=== PATIENT | male | born 1965 | race Asian ===

== ENCOUNTER → 2016-10-25 | Outpatient (CLI) | payer OTHER, BC ==
[~2016-10-25] MED LIST: ALBU18002 INH; HYDR-5688 PO; OXYC-57 PO; RANI300T2 PO
[2016-10-25 13:30] LABS: BASO % 0.3 %; BASO ABS # 0.02 K/uL (0-0.2); COMPLETE YES; EOS % 4.4 %; HEMATOCRIT 46.5 % (42-52); IG% 0.6 %; LYMPH % 26.3 %; MEAN CELL VOLUME 90.5 fL (80-100); MEAN CORPUSCULAR HGB CONC 33.1 g/dl (32-36); MEAN PLATELET VOLUME 9.8 fL (7.4-10.4); MONO % 13.7 %; NEUT % 54.7 %; PLATELET COUNT 389 K/uL (130-400); RED BLOOD COUNT 5.14 M/uL (4.7-6.1); WHITE BLOOD COUNT 7.22 K/uL (4.8-10.8)
[2016-10-25 13:50] LABS: BLOOD UREA NITROGEN 14 mg/dl (7-18); BUN/CREATININE RATIO 18.9 (10-20); CALCIUM 8.9 mg/dl (8.5-10.1); CARBON DIOXIDE 30 mmol/L (21-32); CHLORIDE 106 mmol/L (98-107); CREATININE 0.73 mg/dl (0.60-1.40); GLUCOSE 83 mg/dl (70-99); POTASSIUM 4.1 mmol/L (3.5-5.1); SODIUM 142 mmol/L (136-145)
== END | disposition home or self-care (01) ==
LOC: C.LABBC 11:25
PROVIDERS: ATTEND Orthopaedic Surgery
DX: Z01.818 Encounter for other preprocedural examination (principal); M75.02 Adhesive capsulitis of left shoulder

== ENCOUNTER → 2016-11-02 | Day surgery (SDC) | payer OTHER, BC ==
[2016-10-31 10:03] VITALS: Ht 157.5 cm; Wt 51.8 kg
[~2016-11-02] VITALS: Ht 157.5 cm; Wt 51.8 kg
[~2016-11-02] MED LIST changes: +ATROPINE SULFATE 0.1 MG/ML 5ML SYR IV PRN; +BUPIVACAINE/EPINEPHRINE 0.25% 1:200,000 30 ML VIAL ONE; +BUPIVACAINE/EPINEPHRINE 0.5% MPF 1:200,000 30 ML VIAL ONE; +CEFAZOLIN 2000 MG/60 ML D5W IV SCH; +DEXAMETHASONE SOD INJ 4 MG/ML VIAL ONE; +EpHEDrine SULFATE INJ 50 MG/ML AMP IV PRN; +EpINEphrine INJ 1MG/ML AMP 1 MG/ML AMP ONE; +FENTANYL CITRATE INJ 50 MCG/1 ML 2 ML VIAL IV PRN; +FENTANYL CITRATE INJ 50 MCG/1 ML 2 ML VIAL ONE; -HYDR-5688 PO; +LACTATED RINGER'S 1000ML 1,000 ML IV SCH; +LIDOCAINE HCL 2% 2 ML VIAL (20MG/ML) ONE; +METHYLPREDNISOLONE ACETATE 80 MG/ML VIAL ONE; +MIDAZOLAM HCL 1 MG/ML 2ML VIAL ONE; +ONDANSETRON INJ 2 MG/ML 2 ML VIAL IV PRN; +ONDANSETRON INJ 2 MG/ML 2 ML VIAL ONE; +OXYCODONE/ACETAMINOPHEN 5-325 TAB PO PRN; +PROMETHAZINE HCL INJ 6.25 MG in SODIUM CHLORIDE 0.9% 50ML 50 ML IV PRN; +PROPOFOL IV EMULSION 10 MG/ML 20 ML VIAL IV ONE; +SODIUM CHLORIDE 0.9% 1000ML 1,000 ML IV SCH
--- NOTE | 2016-11-02 10:04 | History & Physical Bridge - [place] ---
H&P Re-Evaluation Bridge Note: I have examined the patient, reviewed the History & Physical and in the interval since the performance of the History & Physical I have noted the following changes of clinical significance: No changes noted
--- NOTE | 2016-11-02 15:13 | Discharge Instructions-SurgCtr ---
Discharge Instructions Date of Service Nov 02, 2016. Visit Reason for Visit: Left Shoulder Adhesive Capsulitis Discharge Discharge Diagnosis / Problem: SAME ABOVE Discharge Goals Goal(s): Decrease discomfort, Improve function Activity Recommendations Activity Limitations: as noted below Lifting Limitations: gradually increase as tolerated Exercise/Sports Limitations: gradually increase as tolerated Shower/Bathe: tomorrow MEDICATIONS: * Resume previous medications unless instructed otherwise by your surgeon. * Always take pain medication on a full stomach or with food to avoid upset stomach. * Do not drink alcohol or drive while taking narcotics. * Ibuprofen or Tylenol may be taken if narcotic not needed. SPECIAL CARE INSTRUCTIONS: __ None _X_ Keep extremity elevated and iced x 48 hours; apply ice 20-30 minutes 8-10 times/day. May remove at night. _X_ Sling (REMOVE TOMORROW) __24 hrs/day __ Remove at night __ Shoulder Immobilizer __ 24 hrs/day __ Remove at night _X_ Dressing __ Maintain until seen in office, may shower with plastic over site _X_ Remove dressings in 24-48 hours and then may shower _X_ Cover incisions with band-aids after showering __ Do not remove steri-strips Call physician if chills or temperature rises above 102 degrees or pain unrelieved by prescribed pain medications at . . Anesthesia . Post Anesthesia Instructions: If you have had General Anesthesia or IV Sedation: * Do not drive today. * Resume driving when surgeon permits. * Do not make important decisions or sign legal documents today. * Call surgeon for: 1. Temperature elevations greater than 101 degrees F. 2. Uncontrollable pain. 3. Excessive bleeding. 4. Persistent nausea and vomiting. 5. Medication intolerance (nausea, vomiting or rash). * For nausea and vomiting use only clear liquids such as: tea, soda, bouillon until nausea subsides, then gradually increase diet as tolerated. * If you have any concerns or questions, call your surgeon's office. If physician is unavailable and it is an emergency, call 911 or go to the nearest emergency room. . Diet Recommendations Home Diet: no limitations Fluid Restriction: None Procedures Procedures Performed: Left Shoulder Arthroscopic Lysis of Adhesions and Extensive Debridement Pending Studies Studies pending at discharge: no Work Instructions Return To Work: after follow-up Medical Emergencies . Who to Call and When: Medical Emergencies: If at any time you feel your situation is an emergency, please call 911 immediately. . Non-Emergent Contact Non-Emergency issues call your: Primary Care Provider Call Non-Emergent contact if: you have a fever, temperature is above 101.5 . . "Provider Documentation" section prepared by Ryan Saldivar. .
[2016-11-02 16:21] VITALS: BP 145/87; PULSE 69; TEMP 36.4; O2SAT 96
--- NOTE | 2016-11-02 17:02 | [facility] Post Operative Brief Note ---
Immediate Operative Summary Operative Date Nov 02, 2016. Pre-Operative Diagnosis Adhesive capsulitis left shoulder Post-Operative Diagnosis Same as preop Procedure(s) Performed Left Shoulder Arthroscopic Lysis of Adhesions and Extensive Debridement Surgeon Dr. [place] Guide Surgeon(s) Ryan Saldivar PA-C Estimated Blood Loss 5ML Findings as above Specimens None Complication(s) None Disposition Recovery Room / PACU
--- NOTE | 2016-11-02 17:42 | Anesthesia Progress Nt - [facility] ---
Anesthesia Post Op Note Date & Time Nov 02, 2016 at 17:42 Vital Signs Pain Intensity: 6.2 Vital Signs Past 12 Hours Date Time Temp Pulse Resp B/P (MAP) Pulse Ox O2 Delivery O2 Flow Rate FiO2 11/02/16 16:21 36.4 69 145/87 (106) 96 Room Air 11/02/16 15:44 36.4 72 16 129/78 98 Room Air 11/02/16 15:43 74 15 11/02/16 15:43 77 15 96 11/02/16 15:42 129/78 11/02/16 15:38 73 23 98 11/02/16 15:38 74 23 11/02/16 15:37 129/78 11/02/16 15:33 73 18 98 11/02/16 15:33 74 18 11/02/16 15:32 135/86 11/02/16 15:29 19 11/02/16 15:29 71 19 11/02/16 15:27 120/66 11/02/16 15:24 66 21 11/02/16 15:24 66 21 100 11/02/16 15:22 123/73 11/02/16 15:19 68 12 11/02/16 15:19 68 12 100 11/02/16 15:17 129/76 11/02/16 15:14 69 19 11/02/16 15:14 69 19 100 11/02/16 15:12 134/80 11/02/16 15:11 133/78 11/02/16 15:09 36.4 70 12 133/78 100 Diffusion Mask 11/02/16 14:07 114/74 11/02/16 14:06 67 11/02/16 14:06 67 14 98 11/02/16 14:02 111/83 11/02/16 14:01 64 14 98 11/02/16 14:01 64 11/02/16 13:57 141/87 11/02/16 13:56 63 8 98 11/02/16 13:56 63 11/02/16 13:54 138/87 11/02/16 10:43 37.0 67 20 114/76 (89) 95 Room Air Notes Mental Status: alert / awake / arousable, participated in evaluation Pt Amnestic to Procedure: Yes Nausea / Vomiting: adequately controlled Pain: adequately controlled Airway Patency, RR, SpO2: stable & adequate BP & HR: stable & adequate Hydration State: stable & adequate Anesthetic Complications: no major complications apparent Block working well in pacu
--- NOTE | 2016-11-02 20:43 | OPERATIVE REPORT ---
DATE OF OPERATION: 11/02/2016 PREOPERATIVE DIAGNOSIS: Postoperative adhesive capsulitis and scar tissue of the left shoulder. POSTOPERATIVE DIAGNOSIS: Same. PROCEDURE: Left shoulder diagnostic arthroscopy with extensive debridement, acromioplasty and manipulation under anesthesia. SURGEON: Dr. Josiah Blanchard. KINDERGARTEN TUTOR: Lalit Saldivar PA-C, whose assistance was necessary for positioning of the arm and helping with instrumentation. ANESTHESIA: General with a left interscalene nerve block. COMPLICATIONS: None. CONDITION: Stable to PACU. INDICATIONS: Malik is a very pleasant 51-year-old male, who underwent a small rotator cuff repair about 6 months ago. He has done fairly well postoperatively except for the fact that he has had persistent tightness of his left shoulder. At 6 months' out, his motion was still unacceptable and he elected to proceed with an arthroscopic capsular release. On 11/02/2016 he arrived at [facility] for the above procedure. On preoperative physical examination, he had about 60 degrees of abduction, 0 degrees of external rotation. DESCRIPTION OF THE PROCEDURE: He was seen in the preoperative holding area and the operative extremity was identified and signed. He was given a preoperative antibiotic and a left interscalene nerve block. He was taken back to the operating room, laid on the table in supine position and put under general anesthesia. He was then put into the beachchair position. The left shoulder was prepped and draped in sterile fashion. Time-out was done and the patient and operative extremity was properly identified. A scope was placed in the posterior portal. Diagnostic arthroscopy showed no cartilage damage to the humeral head or the glenoid. There was a lot of scar tissue mostly in the rotator interval and in the middle and anterior-inferior glenohumeral ligaments. The biceps tendon was previously tenodesed. The cuff repair was intact. An anterior portal was made. A shaver and ablator were used to do a complete lysis of adhesions and open up the entire rotator interval and release the middle glenohumeral ligament and anterior-inferior glenohumeral ligaments. A shaver was used to remove the debris and resect the remnants of the capsule. The scope was then put into the subacromial space. A lateral portal was made. A shaver was used to do an extensive debridement of the subacromial and subdeltoid space. Significant time was spent doing a lysis of adhesions and freeing up the subacromial region. There were very strong adhesions around the anterior acromion down on to the rotator cuff. Once I fully opened up the subacromial and subdeltoid space, the scope was placed back into the glenohumeral joint and hemostasis was controlled. Arthroscopic instruments were removed from the shoulder and a manipulation was done under anesthesia. I was able to get full range of motion of his left shoulder. The portal sites were then closed with 3-0 Vicryl and the shoulder was injected with 80 mg of Depo-Medrol. He was then placed in a soft dressing and regular arm sling. He was then extubated, transferred to a [facility] and taken to the postanesthesia care unit in stable condition. He tolerated the procedure well. I attest to the content of the Intraoperative Record and any orders documented therein. Any exceptions are noted below. PRASAD
== END | disposition home or self-care (01) ==
LOC: X.SURG 10:16
PROVIDERS: ATTEND Orthopaedic Surgery
DX: M75.02 Adhesive capsulitis of left shoulder (principal); K21.9 Gastro-esophageal reflux disease without esophagitis; Z79.899 Other long term (current) drug therapy

== ENCOUNTER 2017-06-23 12:14 | Emergency (ER) | payer BC, OTHER ==
[~2017-06-23] VITALS: Ht 157.5 cm; Wt 54.0 kg
[~2017-06-23 12:14] MED LIST changes: -ATROPINE SULFATE 0.1 MG/ML 5ML SYR IV PRN; -BUPIVACAINE/EPINEPHRINE 0.25% 1:200,000 30 ML VIAL ONE; -BUPIVACAINE/EPINEPHRINE 0.5% MPF 1:200,000 30 ML VIAL ONE; -CEFAZOLIN 2000 MG/60 ML D5W IV SCH; -DEXAMETHASONE SOD INJ 4 MG/ML VIAL ONE; -EpHEDrine SULFATE INJ 50 MG/ML AMP IV PRN; -EpINEphrine INJ 1MG/ML AMP 1 MG/ML AMP ONE; -FENTANYL CITRATE INJ 50 MCG/1 ML 2 ML VIAL IV PRN; -FENTANYL CITRATE INJ 50 MCG/1 ML 2 ML VIAL ONE; -LACTATED RINGER'S 1000ML 1,000 ML IV SCH; -LIDOCAINE HCL 2% 2 ML VIAL (20MG/ML) ONE; -METHYLPREDNISOLONE ACETATE 80 MG/ML VIAL ONE; -MIDAZOLAM HCL 1 MG/ML 2ML VIAL ONE; -ONDANSETRON INJ 2 MG/ML 2 ML VIAL IV PRN; -ONDANSETRON INJ 2 MG/ML 2 ML VIAL ONE; -OXYC-57 PO; -OXYCODONE/ACETAMINOPHEN 5-325 TAB PO PRN; -PROMETHAZINE HCL INJ 6.25 MG in SODIUM CHLORIDE 0.9% 50ML 50 ML IV PRN; -PROPOFOL IV EMULSION 10 MG/ML 20 ML VIAL IV ONE; -SODIUM CHLORIDE 0.9% 1000ML 1,000 ML IV SCH
[2017-06-23 12:19] VITALS: Ht 157.5 cm; Wt 54.0 kg
[2017-06-23] MEDS ORDERED: OXYMETAZOLINE HCL 0.05% NA SPR 15 ML BTL ONE (13:00)
[2017-06-23 14:03] VITALS: BP 140/87; PULSE 66; TEMP 36.8; O2SAT 98
--- NOTE | 2017-06-23 14:29 | EMERGENCY ROOM VISIT NOTE ---
History Report prepared by Fatimah: Soledad Escobar Under the Supervision of: Dr. Crow Del Cid D.O. First contact with patient: 12:38 Chief Complaint: FLU LIKE SX Stated Complaint: RUNNING NOSE, BLEEDING History of Present Illness The patient is a 51 year old male who presents to the Emergency Room with complaints of persistent nosebleeds that began 4 days ago. He reports that he has been coughing, congested, and feeling under the weather. The patient states that he called his PCP concerning his symptoms, who suggested he come to the Emergency Department for further evaluation. 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 Source of History: patient Onset: 4 days ago Position: nose Quality: other (nosebleed) Timing: other (persistent) Associated Symptoms: + cough Note: Associated symptoms include congestion Review of Systems See HPI for pertinent positives & negatives. A total of 10 systems reviewed and were otherwise negative. Past Medical & Surgical Medical Problems: (1) Bronchitis Surgical Problems: (1) H/O shoulder surgery Family History Patient reports no known family medical history. Social History Smoking Status: Never Smoker Smokeless Tobacco Use: No Alcohol Use: none Drug Use: none Marital Status: single Housing Status: lives alone Occupation Status: employed Current/Historical Medications Scheduled Albuterol Sulfate (Proair Respiclick), 1 PUFF INH BID Ranitidine Hcl (Zantac), 300 MG PO BID Allergies Coded Allergies: Ibuprofen (Verified Allergy, Intermediate, Rash, 06/23/17) Uncoded Allergies: ALEVE (Allergy, Mild, upset stomach, 04/26/16) Physical Exam Vital Signs Date Time Temp Pulse Resp B/P (MAP) Pulse Ox O2 Delivery O2 Flow Rate FiO2 06/23/17 14:03 36.8 66 18 140/87 98 Room Air 06/23/17 12:19 36.6 73 18 119/72 95 Room Air Physical Exam CONSTITUTIONAL/VITAL SIGNS: Reviewed / noted above. GENERAL: Non-toxic in appearance. INTEGUMENTARY: Warm, dry, and [place]. HEAD: Normocephalic. EYES: without scleral icterus or trauma. ENT/OROPHARYNX: Bilateral septum irritation with small amount of bleeding noted in right naris. LYMPHADENOPATHY/NECK: Is supple without lymphadenopathy or meningismus. RESPIRATORY: Lungs clear and equal. CARDIOVASCULAR: Regular rate and rhythm. GI/ABDOMEN: Soft and nontender. No organomegaly or pulsatile mass. No rebound or guarding. Normal bowel sounds. EXTREMITIES: Warm and well perfused. BACK: No CVA tenderness. NEUROLOGICAL: Intact without focal deficits. PSYCHIATRIC: normal affect. MUSCULOSKELETAL: Normally developed with good muscle tone. Medical Decision & Procedures Medications Administered Medications (Trade) Dose Ordered Sig/Liz Route Start Time Stop Time Status Last Admin Dose Admin Oxymetazoline HCl (Afrin 0.05% Nasal [place]) 2 sprays NOW ONCE NA 06/23/17 13:00 06/23/17 13:01 DC 06/23/17 13:03 2 SPRAYS Procedure 1258: Used silver nitrate to cauterize small portion of bilateral septum. ED Course 1241: Previous medical records were reviewed. The patient was evaluated in room A3. A complete history and physical examination was performed. 1258: Used silver nitrate to cauterize small portion of bilateral septum. 1300: Ordered Oxymetazoline HCL 2 sprays NA. 1411: I reevaluated the patient, who was feeling significantly better. 1430: On reevaluation, the patient is resting comfortably. I discussed the results and findings with the patient. He verbalized agreement of the treatment plan. The patient was discharged home. Medical Decision Differential diagnosis: Etiologies such as anterior epistaxis, coagulopathy, traumatic injury, fracture , septal hematoma, posterior epistaxis as well as other pathologies were entertained. This is a 51-year-old male who presents to the ED with a chief complaint of nosebleed. The patient states that he has had intermittent nosebleeds for the past several days. Exam of the nares reveals some dried nasal septum with some areas that have recently been bleeding. There is some areas that appear to be dry and irritated. Silver nitrate was used to cauterize some of the recently bleeding areas. Afrin was also used. The patient is felt to be stable for discharge. There was no bleeding in the posterior oropharynx on exam. There does not appear to be any active bleeding on reassessment or discharge. Medication Reconcilliation Current Medication List: was personally reviewed by me Impression Primary Impression: Epistaxis Scribe Attestation The scribe's documentation has been prepared under my direction and personally reviewed by me in its entirety. I confirm that the note above accurately reflects all work, treatment, procedures, and medical decision making performed by me. Departure Information Dispostion Home / Self-Care Referrals Arcadio Suazo MD (PCP) Forms HOME CARE DOCUMENTATION FORM, IMPORTANT VISIT INFORMATION Patient Instructions My [facility] Additional Instructions Use the Afrin spray in the bilateral nares 4 times a day for the next several days. Use the nose clamp for any active bleeding. About 20 minutes at a time. Avoid picking the nose or trauma to the nose.
== END 2017-06-23 14:47 | disposition home or self-care (01) ==
LOC: C.EDB 12:16 → C.EDA 14:47
DX: R04.0 Epistaxis (principal); R05 Cough

== ENCOUNTER 2017-06-25 06:57 | Emergency (ER) | payer OTHER ==
[~2017-06-25] VITALS: Ht 157.5 cm; Wt 53.8 kg
[2017-06-25] MEDS ORDERED: OXYMETAZOLINE HCL 0.05% NA SPR 15 ML BTL ONE (07:03)
[2017-06-25 07:06] VITALS: Ht 157.5 cm; Wt 53.8 kg
[2017-06-25] MEDS ORDERED: SILVER NITR/POTASSIUM NITRATE APPLICATOR EXT STA (07:37)
--- NOTE | 2017-06-25 07:40 | EMERGENCY ROOM VISIT NOTE ---
History First contact with patient: 07:01 Chief Complaint: NOSE BLEED (MINOR) Stated Complaint: NOSE BLEED History of Present Illness The patient is a 51 year old male who presents to the Emergency Room via private vehicle with complaints of "nosebleed". Patient states he has been experiencing nosebleeds off and on, and notes that today began therefore prompting his arrival. There is no dizziness or lightheadedness. It is from the right nostril. He notes forced air heat at his house. There has been no trauma or injury. Review of Systems A complete 6-point Review of Systems was discussed with the patient, with pertinent positives and negatives listed in the History of Present Illness. All remaining Review of Systems questions can be considered negative unless otherwise specified. Past Medical/Surgical History Medical Problems: (1) Bronchitis Surgical Problems: (1) H/O shoulder surgery Family History Patient reports no known family medical history. Social History Smoking Status: Never Smoker Alcohol Use: none Drug Use: none Marital Status: single Housing Status: lives alone Occupation Status: employed Current/Historical Medications Scheduled Albuterol Sulfate (Proair Respiclick), 1 PUFF INH BID Ranitidine Hcl (Zantac), 300 MG PO BID Physical Exam Vital Signs Date Time Temp Pulse Resp B/P (MAP) Pulse Ox O2 Delivery O2 Flow Rate FiO2 06/25/17 08:05 71 18 113/75 96 06/25/17 07:06 84 16 122/78 99 Room Air Physical Exam VITAL SIGNS - Vital signs and nursing notes were reviewed. Stable. GENERAL -51-year-old male appearing his stated age who is in no acute distress. Communicates well with provider and answers questions appropriately. SKIN - Without rashes. HEAD - NC/AT. EYES - Sclera anicteric. EARS - No deformities of external structures noted on gross examination bilaterally. NOSE - Midline and without cyanosis. No epistaxis or purulent drainage noted. Dried blood in L nare. MOUTH/OROPHARYNX - Without perioral cyanosis. Medical Decision & Procedures Medications Administered Medications (Trade) Dose Ordered Sig/Liz Route Start Time Stop Time Status Last Admin Dose Admin Oxymetazoline HCl (Afrin 0.05% Nasal [place]) 75 sprays STK-MED ONCE .ROUTE 06/25/17 07:03 06/25/17 07:04 DC 06/25/17 07:03 75 SPRAYS Silver Nitrate/ Potassium Nitrate (Silver Nitrate Applicators) 1 appl NOW STAT EXT 06/25/17 07:37 06/25/17 07:38 DC 06/25/17 07:37 1 APPL Medical Decision Patient was seen and evaluated as above. He presents to us today with epistaxis. There is no bleeding upon entry. I then had him blow his nose, and began to bleed from the left nostril. The offending vessel was identified. It is on the left anterior septum. Benefits versus risk of cautery was discussed, the decision was made to cauterize this region. This was spot cauterized temporarily so as to not cause septum damage or further bleeding. Hemostasis was achieved. There was no continued bleeding. He was observed for some time. He is to follow with your nose and throat of which she has had to do so in the past, and not blow his nose for the next few days. He was given Afrin here and was discharged home with this in the event of rebleeding. He was given a nasal clamp. He was educated upon management, educated upon worrisome symptoms in which to return, had questions about discharge, and was discharged home in good condition. In evaluation treatment this patient following differential diagnoses were entertained: Anterior epistaxis, posterior epistaxis, among others. Impression Primary Impression: Epistaxis, recurrent Departure Information Dispostion Home / Self-Care Condition GOOD Referrals Arcadio Suazo MD (PCP) Santiago Young M.D. Patient Instructions My [facility] Additional Instructions You have been treated in the Emergency Department today for your Nose Bleed ( Epistaxis). Do NOT blow your nose for the next few days. This can result in recurrence of your nosebleed. You should consider using a humidifier to help moisten the air and decrease instances of nosebleeds. You can use [id number] saline nasal sprays to help moisten the nasal mucosa and decrease instances of nosebleeds. As with any trip to the Emergency Department, you should follow-up with your Primary Care Provider from today's visit and Dr. Young (Ear, nose and throat doctor) Use the afrin spray with clamp if the nose would bleed. Apply clamp for 15 minutes and if continues please return. Return to the emergency department if your symptoms persist despite treatment plan outlined above or if the following symptoms occur: uncontrollable nosebleed , dizziness, lightheadedness, pre-syncope, or re-bleed.
[2017-06-25 08:05] VITALS: BP 113/75; PULSE 71; O2SAT 96
== END 2017-06-25 08:06 | disposition home or self-care (01) ==
LOC: C.EDB 06:58 → C.EDA 08:06
DX: R04.0 Epistaxis (principal)

== ENCOUNTER 2017-06-27 12:52 | Inpatient (IN) | payer OTHER ==
[~2017-06-27] VITALS: Ht 157.5 cm; Wt 53.9 kg
[2017-06-27] MEDS ORDERED: BENZ100C84 PO (13:35)
[2017-06-27] MEDS ORDERED: TRMO2580 TOP (13:35)
[2017-06-27] MEDS ORDERED: HYDR25CA PO (13:35)
[2017-06-27] MEDS ORDERED: FLUT0.15 (13:35)
[2017-06-27] MEDS ORDERED: ACET-1311 PO (13:35)
[2017-06-27] MEDS ORDERED: SALI0.6510 (13:35)
[2017-06-27 13:57] LABS: BASO % 0.5 %; BASO ABS # 0.04 K/uL (0-0.2); EOS % 7.1 %; EOS ABS # 0.52 K/uL (0-0.5); HEMATOCRIT 40.1 % (42-52); HEMOGLOBIN 13.5 g/dL (14.0-18.0); IG# 0.01 K/uL (0.00-0.02); LYMPH % 18.8 %; LYMPH ABS # 1.37 K/uL (1.2-3.4); MEAN CELL VOLUME 88.1 fL (80-100); MEAN CORPUSCULAR HEMOGLOBIN 29.7 pg (25-34); MEAN CORPUSCULAR HGB CONC 33.7 g/dl (32-36); MEAN PLATELET VOLUME 8.8 fL (7.4-10.4); MONO % 10.9 %; MONO ABS # 0.79 K/uL (0.11-0.59); NEUT % 62.6 %; NEUT ABS # 4.55 K/uL (1.4-6.5); PLATELET COUNT 354 K/uL (130-400); RED CELL DISTRIBUTION WIDTH CV 12.8 % (11.5-14.5); RED CELL DISTRIBUTION WIDTH SD 40.6 fL (36.4-46.3); WHITE BLOOD COUNT 7.28 K/uL (4.8-10.8)
[2017-06-27 14:17] LABS: ALBUMIN 3.8 gm/dl (3.4-5.0); CALCIUM 9.3 mg/dl (8.5-10.1); CREATININE 0.77 mg/dl (0.60-1.40); POTASSIUM 3.7 mmol/L (3.5-5.1)
[2017-06-27 14:28] LABS: TOTAL PROTEIN 9.7 gm/dl (6.4-8.2)
--- NOTE | 2017-06-27 14:40 | DIAGNOSTIC IMAGING REPORT ---
SINGLE VIEW CHEST CLINICAL HISTORY: Weakness. Change in mental status. FINDINGS: An AP, portable, upright chest radiograph is obtained. No prior studies are available for comparison at the time of dictation. The examination is degraded by portable technique and patient rotation. The cardiomediastinal silhouette is unremarkable. The lungs and pleural spaces are clear. No pneumothorax is seen. The bony thorax is grossly intact. IMPRESSION: No acute cardiopulmonary abnormality. Electronically signed by: Enrrique Coleman M.D. 06/27/2017 2:38 PM Dictated Date/Time: 06/27/2017 2:38 PM
--- NOTE | 2017-06-27 15:19 | EMERGENCY ROOM VISIT NOTE ---
History Report prepared by Fatimah: Demetri Barton Under the Supervision of: Dr. Enrrique Pugh M.D. First contact with patient: 13:15 Chief Complaint: ABNORMAL LABS Stated Complaint: NOSE BLEED, SENT FROM History of Present Illness The patient is a 51 year old male who presents to the Emergency Room with complaints of recurrent nose bleed since June 20, 2017. The patient has been in the in the ED three times for similar symptoms in the last week. He notes the blood is currently coming from his left naris. He states the nose bleed initially began in his right naris and has flip-flopped between his right and left naris. He was seen at the ENT office for his nose bleed and had a rhino pack placed on the left side. He was advised to come to the ED for a high INR reading. He is not taking Coumadin. He denies bleeding gums when he brushes his teeth. He denies drinking alcohol. He took Tylenol last June 19, 2017. He has a history of shoulder surgery March 2016. He is employed, lives alone, and takes care of himself. He denies any headaches or other complaints. Source of History: patient Onset: June 20, 2017 Position: nose Quality: other (bleed) Timing: other (recurrent) Associated Symptoms: No headache Note: He denies bleeding gums when he brushes his teeth. Review of Systems See HPI for pertinent positives & negatives. A total of 10 systems reviewed and were otherwise negative. Past Medical & Surgical Medical Problems: (1) Bronchitis (2) left shoulder surgery (3) Nosebleed Surgical Problems: (1) H/O shoulder surgery Family History No pertinent family history Social History Smoking Status: Never Smoker Alcohol Use: none Drug Use: none Marital Status: single Housing Status: lives alone Occupation Status: employed Current/Historical Medications Scheduled Albuterol Sulfate (Proair Respiclick), 1 PUFF INH BID Benzonatate (Tessalon Perles), 1-2 CAP PO Q4 Hydroxyzine Pamoate (Vistaril), 1 CAP PO BID Ranitidine Hcl (Zantac), 300 MG PO BID Triamcinolone Acetonide (Topic (Triamcinolone Acet 0.025%), 1 APPLN TOP BID Miscellaneous Medications Acetaminophen (Tylenol), 325 MG PO Fluticasone Propionate (Nasal) (Flonase Allergy Relief) Saline ([place] Nasal [place]) Allergies Coded Allergies: Phytonadione (Verified Allergy, Severe, ANAPHYLAXIS, 06/27/17) IV only After 1 minute of transfusing IV form patients entire body became red, eye blood shot, SOB with wheezing and throat swelling. Ibuprofen (Verified Allergy, Intermediate, Rash, 06/27/17) Uncoded Allergies: ALEVE (Allergy, Mild, upset stomach, 04/26/16) Physical Exam Vital Signs Date Time Temp Pulse Resp B/P (MAP) Pulse Ox O2 Delivery O2 Flow Rate FiO2 06/27/17 17:20 76 20 127/87 100 Room Air 06/27/17 17:18 76 06/27/17 17:00 74 18 127/78 99 Room Air 06/27/17 16:03 36.8 71 18 121/74 98 Room Air 06/27/17 14:34 66 18 119/71 99 Room Air 06/27/17 12:58 36.7 71 18 125/79 97 Room Air Physical Exam GENERAL: Patient is in no acute distress. HEENT: No acute trauma, normocephalic atraumatic, mucous membranes moist, no nasal congestion, no scleral icterus. Rhino pack inflated in left nostril. NECK: No stridor, no adenopathy, no meningismus, trachea is midline. LUNGS: Clear to auscultation bilaterally, no wheeze, no rhonchi, breath sounds equal. HEART: Without murmurs gallops or rubs, regular rate and rhythm. ABDOMEN: Soft, nontender, bowel sounds positive, no hernias, no peritonitis. EXTREMITIES: No cyanosis or edema, full range of motion of all the joints without pain or difficulty, no signs for acute trauma. NEUROLOGIC: Oriented x 3, no acute motor or sensory deficits, no focal weakness. SKIN: No rash, no jaundice, no diaphoresis. Medical Decision & Procedures ER Provider Diagnostic Interpretation: Radiology results as stated below per my review and radiologist interpretation: SINGLE VIEW CHEST CLINICAL HISTORY: Weakness. Change in mental status. FINDINGS: An AP, portable, upright chest radiograph is obtained. No prior studies are available for comparison at the time of dictation. The examination is degraded by portable technique and patient rotation. The cardiomediastinal silhouette is unremarkable. The lungs and pleural spaces are clear. No pneumothorax is seen. The bony thorax is grossly intact. IMPRESSION: No acute cardiopulmonary abnormality. Electronically signed by: Enrrique Coleman M.D. 06/27/2017 2:38 PM Dictated Date/Time: 06/27/2017 2:38 PM Laboratory Results 06/27/17 13:44 Red Blood Count 4.55, Mean Corpuscular Volume 88.1, Mean Corpuscular Hemoglobin 29.7, Mean Corpuscular Hemoglobin Concent 33.7, Mean Platelet Volume 8.8, Neutrophils (%) (Auto) 62.6, Lymphocytes (%) (Auto) 18.8, Monocytes (%) (Auto) 10.9, Eosinophils (%) (Auto) 7.1, Basophils (%) (Auto) 0.5, Neutrophils # (Auto ) 4.55, Lymphocytes # (Auto) 1.37, Monocytes # (Auto) 0.79, Eosinophils # (Auto ) 0.52, Basophils # (Auto) 0.04 06/27/17 13:44 Test 06/27/17 13:44 06/27/17 15:02 06/27/17 17:05 06/27/17 17:46 White Blood Count 7.28 K/uL (4.8-10.8) Red Blood Count 4.55 M/uL (4.7-6.1) Hemoglobin 13.5 g/dL (14.0-18.0) Hematocrit 40.1 % (42-52) Mean Corpuscular Volume 88.1 fL (80-100) Mean Corpuscular Hemoglobin 29.7 pg (25-34) Mean Corpuscular Hemoglobin Concent 33.7 g/dl (32-36) Platelet Count 354 K/uL (130-400) Mean Platelet Volume 8.8 fL (7.4-10.4) Neutrophils (%) (Auto) 62.6 % Lymphocytes (%) (Auto) 18.8 % Monocytes (%) (Auto) 10.9 % Eosinophils (%) (Auto) 7.1 % Basophils (%) (Auto) 0.5 % Neutrophils # (Auto) 4.55 K/uL (1.4-6.5) Lymphocytes # (Auto) 1.37 K/uL (1.2-3.4) Monocytes # (Auto) 0.79 K/uL (0.11-0.59) Eosinophils # (Auto) 0.52 K/uL (0-0.5) Basophils # (Auto) 0.04 K/uL (0-0.2) RDW Standard Deviation 40.6 fL (36.4-46.3) RDW Coefficient of Variation 12.8 % (11.5-14.5) Immature Granulocyte % (Auto) 0.1 % Immature Granulocyte # (Auto) 0.01 K/uL (0.00-0.02) Anion Gap 9.0 mmol/L (3-11) Est Creatinine Clear Calc Drug Dose 85.6 ml/min Estimated GFR () 120.9 Estimated GFR (Non- 104.3 BUN/Creatinine Ratio 8.8 (10-20) Calcium Level 9.3 mg/dl (8.5-10.1) Total Bilirubin 0.5 mg/dl (0.2-1) Direct Bilirubin 0.1 mg/dl (0-0.2) Aspartate Amino Transf (AST/SGOT) 76 U/L (15-37) Alanine Aminotransferase (ALT/SGPT) 38 U/L (12-78) Alkaline Phosphatase 105 U/L (45-117) Total Creatine Kinase 143 U/L (39-308) Total Protein 9.7 gm/dl (6.4-8.2) Albumin 3.8 gm/dl (3.4-5.0) Thyroid Stimulating Hormone (TSH) 0.929 uIu/ml (0.300-4.500) Salicylates Level < 1.7 mg/dl (2.8-20) Acetaminophen Level < 2 ug/ml (10-30) Prothrombin Time > 100.0 SECONDS Prothromb Time International Ratio > 10.0 (0.9-1.1) Activated Partial Thromboplast Time > 300.0 SECONDS Partial Thromboplastin Ratio > 11.0 Fibrinogen 375 mg/dl (184-400) Bedside D-Dimer 45 ng/mlFEU (0-450) Laboratory results reviewed by me. Medications Administered Medications (Trade) Dose Ordered Sig/Liz Route Start Time Stop Time Status Last Admin Dose Admin Phytonadione 10 mg/Sodium Chloride 51 ml @ 102 mls/hr ONE ONCE IV 06/27/17 16:30 06/27/17 16:59 DC 06/27/17 17:03 102 MLS/HR Diphenhydramine HCl (Benadryl Inj) 50 mg STK-MED ONCE .ROUTE 06/27/17 17:08 06/27/17 17:09 DC 06/27/17 17:27 50 MG Phytonadione (Mephyton Tab) 10 mg NOW STAT PO 06/27/17 17:09 06/27/17 17:11 DC 06/27/17 17:31 10 MG Diphenhydramine HCl (Benadryl Inj) 25 mg NOW STAT IV 06/27/17 17:09 06/27/17 17:11 DC 06/27/17 17:10 25 MG Sodium Chloride 500 ml @ 999 mls/hr Q31M STAT IV 06/27/17 17:09 06/27/17 17:39 DC 06/27/17 17:16 999 MLS/HR Albuterol/ Ipratropium (Duoneb) 3 ml NOW STAT INH 06/27/17 17:09 06/27/17 17:11 DC 06/27/17 17:16 3 ML Albuterol Sulfate (Ventolin 0.5% 2.5MG/0.5ML Neb) 2.5 mg STK-MED ONCE INH 06/27/17 17:11 06/27/17 17:12 DC 06/27/17 17:28 2.5 MG ECG Indication: other (nosebleed) Rate (beats per minute): 68 Rhythm: normal sinus Findings: no acute ischemic change, no ectopy Change: Patient's electrocardiogram interpreted by me. ED Course 1318: The patient was evaluated in room A3. A complete history and physical exam was performed. 1608: I reassessed the patient at this time. He is resting comfortably. 1627: I spoke with Roberto Hartmann Hematology. We discussed the patient's case. He recommends vitamin K IV. He wants a mixing study ordered. The patient will be further evaluated and treated. 1630: Ordered Phytonadione 10 mg/Sodium Chloride 51 ml @ 102 mls/hr IV 1632: I reassessed the patient at this time. I discussed the results and treatment plan with the patient. I answered all pertaining questions that he had. He expressed understanding and verbalized agreement. The patient will be further evaluated. 1639: I spoke with Roberto Mcgraw PA-C. We discussed the patient's case. The patient will be evaluated by the [facility] for further management. 1641: I spoke with Dr. Khan, coagulation consultant teacher. We discussed the patient 's case. She agrees with the treatment plan, she does not recommend PCC. 1705: I reassessed the patient at this time. The patient had a reaction to the IV Vitamin K. He became flushed and started coughing. He will have the dose administered orally. 1708: Ordered Benadryl 25 mg IV 1709: Ordered DuoNeb 3 ml INH, Sodium Chloride 500 ml @ 999 mls/hr IV, and Phytonadione 10 mg PO 1753: I reassessed the patient at this time. He is feeling better and resting comfortably. Medical Decision The patient is a 51 year old male who presents to the ED with complaints of nose bleed. Differential diagnoses considered include Tylenol overdose, coagulopathy,liver failure, renal failure, and anemia. . There is no leukocytosis or concerning anemia. No significant electrolyte abnormality, kidney failure or hepatitis. The patient appears to be in a euthyroid state. Chest film does not show pneumonia or cardiomegaly. INR was greater than 10, PTTR was greater than 11. Aspirin and Tylenol levels were undetectable. I spoke with Dr. Nascimento of hematology oncology. I spoke with the coagulation consultant teacher on-call as well. Both specialists recommended IV vitamin K. This was given however, within 30 seconds of starting the vitamin K, the patient became flushed and began coughing. The vitamin K was halted. He received IV Benadryl, IV saline, a DuoNeb. He was given oral vitamin K, 10 mg. The patient is now doing well again, the reaction to the IV vitamin K has subsided. He is not actively bleeding. He will be hospitalized for further care. I did speak with case management. The on-call hospitalist was consulted. Medication Reconcilliation Current Medication List: was personally reviewed by me Blood Pressure Screening Patient's blood pressure: Normal blood pressure Consults Time Called: 1608 Consulting Physician: Roberto Hartmann Hematology Returned Call: 1627 [facility] We discussed the patient's case. He recommends vitamin K IV. He wants a mixing study ordered. The patient will be further evaluated and treated. Additional Consults: Time Called: 1630 Consulted Physician: Roberto Mcgraw PA-C Returned Call: 1639 Additional Comments: I spoke with Roberto Mcgraw PA-C. We discussed the patient's case. The patient will be evaluated by the [facility] for further management. Time Called: 1607 Consulted Physician: Dr. Khan, coagulation consultant teacher Returned Call: 1641 Additional Comments: I spoke with Dr. Khan, coagulation consultant teacher. We discussed the patient's case. She agrees with the treatment plan, she does not recommend PCC. Impression Primary Impression: Coagulopathy Additional Impression: Epistaxis Scribe Attestation The scribe's documentation has been prepared under my direction and personally reviewed by me in its entirety. I confirm that the note above accurately reflects all work, treatment, procedures, and medical decision making performed by me. Departure Information Dispostion Being Evaluated By Hospitalist Referrals Arcadio Suazo MD (PCP) Patient Instructions [facility] Problem Qualifiers
[2017-06-27 15:58] LABS: INR > 10.0 (0.9-1.1); PTT PATIENT > 300.0 SECONDS (21.0-31.0)
[2017-06-27] MEDS ORDERED: PHYTONADIONE INJ 10 MG in SODIUM CHLORIDE 0.9% 50ML 50 ML IV ONE ×4 (16:30)
[2017-06-27] MEDS ORDERED: DiphenhydrAMINE HCL 50 MG/ML VIAL ONE (17:08)
[2017-06-27] MEDS ORDERED: DiphenhydrAMINE HCL 50 MG/ML VIAL IV STA (17:09)
[2017-06-27] MEDS ORDERED: SODIUM CHLORIDE 0.9% 500ML 500 ML IV STA (17:09)
[2017-06-27] MEDS ORDERED: ALBUT/IPRATROP 3MG/0.5MG NEB 3 ML VIAL INH STA (17:09)
[2017-06-27] MEDS ORDERED: PHYTONADIONE 5 MG TAB PO STA (17:09)
[2017-06-27] MEDS ORDERED: ALBUTEROL 0.5% NEB SOLN 2.5 MG/0.5 ML VIAL INH ONE (17:11)
[2017-06-27] MEDS ORDERED: ALBUT/IPRATROP 3MG/0.5MG NEB 3 ML VIAL ONE (17:12)
[2017-06-27 17:20] VITALS: O2SAT 100
[2017-06-27] MEDS ORDERED: ONDANSETRON INJ 2 MG/ML 2 ML VIAL IV PRN (18:30)
--- NOTE | 2017-06-27 18:51 | History and Physical ---
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 of gastric ulcers - presents with epistaxis and coagulopathy. Patient has been having trouble with epistaxis since June 20. He was seen in the ED twice. Had this packed and stopped, but the bleeding recurred. He was then seen by ENT on SundayJune 25 - bleeding again recurred on June 27 - he was again seen by ENT, and this time after the bleeding stopped; labwork was performed and showed an INR of >4. He was sent to the ER for further evaluation. Upon presentation, noted to have INR>10, PT>100, aPTT>100. Denies any blood thinners , does not take Coumadin, aspirin, Plavix or any other blood thinners. Takes Ranitidine twice daily for a previous gastric ulcer; has followed up with gastroenterology for this. After speaking with hematology, vitamin K and further labwork pending. IV Vitamin K was given, patient became very pale, flushed, wheezing, throat closing. Benadryl given. Lisa. I saw the patient afterwards. Breathing improved after nebulizers. Past Medical/Surgical History Medical Problems: (1) left shoulder surgery Status: Resolved (2) Nosebleed Status: Chronic Family History No pertinent family history Social History Smoking Status: Never Smoker Drug Use: none Marital Status: single Occupational Status: employed Allergies Coded Allergies: Phytonadione (Verified Allergy, Severe, ANAPHYLAXIS, 06/27/17) IV only After 1 minute of transfusing IV form patients entire body became red, eye blood shot, SOB with wheezing and throat swelling. Ibuprofen (Verified Allergy, Intermediate, Rash, 06/27/17) Uncoded Allergies: ALEVE (Allergy, Mild, upset stomach, 04/26/16) Home Medications Scheduled Albuterol Sulfate (Proair Respiclick), 1 PUFF INH BID Benzonatate (Tessalon Perles), 1-2 CAP PO Q4 Hydroxyzine Pamoate (Vistaril), 1 CAP PO BID Ranitidine Hcl (Zantac), 300 MG PO BID Triamcinolone Acetonide (Topic (Triamcinolone Acet 0.025%), 1 APPLN TOP BID Miscellaneous Medications Acetaminophen (Tylenol), 325 MG PO Fluticasone Propionate (Nasal) (Flonase Allergy Relief) Saline ([place] Nasal [place]) Review of Systems Constitutional: No fever, No chills, No weakness, No fatigue ENT: + unusual epistaxis, No nasal symptoms, No sore throat Respiratory: + cough, + shortness of breath, No sputum, No wheezing, No dyspnea on exertion, No dyspnea at rest, No hemoptysis Cardiovascular: No chest pain, No orthopnea, No edema, No palpitations Abdomen: No pain, No nausea, No vomiting, No diarrhea, No constipation, No GI bleeding Musculoskeletal: No joint pain, No muscle pain Genitourinary - Male: No hematuria, No dysuria, No urinary frequency, No urinary urgency Neurologic: No memory loss, No numbness/tingling, No vertigo Psychiatric: No depression symptoms, No anxiety, No insomnia Endocrine: No fatigue Hematologic / Lymphatic: + abnormal bleeding/bruising, No swollen lymph nodes, No night sweats Integumentary: No rash Allergic / Immunologic: No environmental allergies, No seasonal allergies Physical Exam Vital Signs Date Time Temp Pulse Resp B/P (MAP) Pulse Ox O2 Delivery O2 Flow Rate FiO2 06/27/17 17:20 76 20 127/87 100 Room Air 06/27/17 17:18 76 06/27/17 17:00 74 18 127/78 99 Room Air 06/27/17 16:03 36.8 71 18 121/74 98 Room Air 06/27/17 14:34 66 18 119/71 99 Room Air 06/27/17 12:58 36.7 71 18 125/79 97 Room Air General Appearance: WD/WN, no apparent distress Head: normocephalic, atraumatic Eyes: normal inspection ENT: + pertinent finding (+mild bleeding noted from nostrils) Neck: supple Respiratory/Chest: lungs clear, normal breath sounds, no respiratory distress, no accessory muscle use Cardiovascular: regular rate, rhythm, no edema, no gallop, no JVD, no murmur Abdomen/GI: normal bowel sounds, non tender, soft Extremities/Musculoskelatal: normal inspection, no calf tenderness, normal capillary refill, no pedal edema, normal range of motion 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, no motor/sensory deficits, alert, normal mood/affect, oriented x 3 Skin: normal color Lymphatic: no adenopathy Diagnostics Laboratory Results Results Past 24 Hours Test 06/27/17 13:44 06/27/17 15:02 06/27/17 17:05 06/27/17 17:46 Range/Units White Blood Count 7.28 4.8-10.8 K/uL Red Blood Count 4.55 4.7-6.1 M/uL Hemoglobin 13.5 14.0-18.0 g/dL Hematocrit 40.1 42-52 % Mean Corpuscular Volume 88.1 80-100 fL Mean Corpuscular Hemoglobin 29.7 25-34 pg Mean Corpuscular Hemoglobin Concent 33.7 32-36 g/dl Platelet Count 354 130-400 K/uL Mean Platelet Volume 8.8 7.4-10.4 fL Neutrophils (%) (Auto) 62.6 % Lymphocytes (%) (Auto) 18.8 % Monocytes (%) (Auto) 10.9 % Eosinophils (%) (Auto) 7.1 % Basophils (%) (Auto) 0.5 % Neutrophils # (Auto) 4.55 1.4-6.5 K/uL Lymphocytes # (Auto) 1.37 1.2-3.4 K/uL Monocytes # (Auto) 0.79 0.11-0.59 K/uL Eosinophils # (Auto) 0.52 0-0.5 K/uL Basophils # (Auto) 0.04 0-0.2 K/uL RDW Standard Deviation 40.6 36.4-46.3 fL RDW Coefficient of Variation 12.8 11.5-14.5 % Immature Granulocyte % (Auto) 0.1 % Immature Granulocyte # (Auto) 0.01 0.00-0.02 K/uL Sodium Level 138 136-145 mmol/L Potassium Level 3.7 3.5-5.1 mmol/L Chloride Level 105 98-107 mmol/L Carbon Dioxide Level 24 21-32 mmol/L Anion Gap 9.0 3-11 mmol/L Blood Urea Nitrogen 7 7-18 mg/dl Creatinine 0.77 0.60-1.40 mg/dl Est Creatinine Clear Calc Drug Dose 85.6 ml/min Estimated GFR () 120.9 Estimated GFR (Non- 104.3 BUN/Creatinine Ratio 8.8 10-20 Random Glucose 75 70-99 mg/dl Calcium Level 9.3 8.5-10.1 mg/dl Total Bilirubin 0.5 0.2-1 mg/dl Direct Bilirubin 0.1 0-0.2 mg/dl Aspartate Amino Transf (AST/SGOT) 76 15-37 U/L Alanine Aminotransferase (ALT/SGPT) 38 12-78 U/L Alkaline Phosphatase 105 45-117 U/L Total Creatine Kinase 143 39-308 U/L Total Protein 9.7 6.4-8.2 gm/dl Albumin 3.8 3.4-5.0 gm/dl Thyroid Stimulating Hormone (TSH) 0.929 0.300-4.500 uIu/ml Salicylates Level < 1.7 2.8-20 mg/dl Acetaminophen Level < 2 10-30 ug/ml Prothrombin Time > 100.0 9.0-12.0 SECONDS Prothromb Time International Ratio > 10.0 0.9-1.1 Activated Partial Thromboplast Time > 300.0 21.0-31.0 SECONDS Partial Thromboplastin Ratio > 11.0 Fibrinogen 375 184-400 mg/dl Bedside D-Dimer 45 0-450 ng/mlFEU Diagnostic Radiology SINGLE VIEW CHEST CLINICAL HISTORY: Weakness. Change in mental status. FINDINGS: An AP, portable, upright chest radiograph is obtained. No prior studies are available for comparison at the time of dictation. The examination is degraded by portable technique and patient rotation. The cardiomediastinal silhouette is unremarkable. The lungs and pleural spaces are clear. No pneumothorax is seen. The bony thorax is grossly intact. IMPRESSION: No acute cardiopulmonary abnormality. 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 of gastric ulcers - presents with epistaxis and coagulopathy. Recurrent Epistaxis secondary to Coagulopathy INR>10, PT>100, aPTT>100 appreciate hem/onc input Factor 1, 2, 5, 10 pending tried giving IV Vitamin K, but patient developed an allergic reaction change to PO Vitamin K recheck labs in AM H/H q8 continuous pulse ox further management as per hematology Hx. of Gastric Ulcers continue Zantac BID DVT ppx SCDs FULL CODE VTE Prophylaxis VTE Risk Assessment Done? Y/N: Yes Risk Level: Low
--- NOTE | 2017-06-27 19:30 | Medical Consult ---
Consultation Date of Consultation: Jun 27, 2017. Attending Physician: History of Present Illness ONCOLOGY HEMATOLOGY CONSULT: Evaluation and management of elevated PT and PTT with epistaxis. Date of consult: 06/27/2017 history obtained at bedside in the ER, found the patient as well as family members who were at bedside. HPI: 51-year-old male, who noticed to to epistaxis initially started on the left side last week on 06/20/2017. 2 days later he started having epistaxis from the right side of the nose, he says that for the last one week he is also having increasing cough, some sore throat, also some low-grade fever, he was seen at [facility] twice, he had a some nasal package with improvement of epistaxis and then he was sent home. He was seen by ENT specialist earlier this week, epistaxis recured, now he came to the [facility] for further evaluation and management. Blood workup done on 06/25/2017 in [facility]: - WBC 5900, H&H of 13.6/41.3, Platelet count of 370,000. - PT 43.2, INR 4.5. In the past he did not have any bleeding complications, he had a left shoulder surgery (diagnostic arthroscopy with extensive debridement under anesthesia) earlier in October 2016 as well as in in April 12, I do not see any coagulation workup done at that time but he did not have any bleeding complications. Before hospitalization, presently he is not on any anticoagulant treatment, he took some Tylenol and some cold medication ([id number]) for the symptomatic treatment for his upper respiratory tract symptoms. He has some low-grade fever but no fever at present. Denies any bleeding from either sites, no IV site bleeding. Denies any abdominal symptoms, no increasing nausea, no vomiting, no leg edema. Non-smoker, denies any ETOH abuse. REVIEW OF SYSTEMS: GENERAL: No change in weight, no weakness, no fatigue, no fever, sweats or chills. SKIN: No skin rash, no bruising. HEAD: No headache, no dizziness. EYES: No change in the vision, no diplopia, EARS: No earache ,no tinnitus, NOSE: epistaxis at this credible, No nasal discharge or stuffiness, MOUTH: No sores, no dysphagia, no hoarseness of voice, NECK: No lumps, No swelling in thyroid area. No stiffness. PULMONARY: cough present for the last one week, No shortness of breath, no hemoptysis, no chest pain, No wheezing. CARDIOVASCULAR: No anginal chest pain, no PND, no orthopnea. No palpitation, no leg edema. No syncope. GASTROINTESTINAL: No abdominal pain, no nausea or vomiting. No diarrhea, No constipation. No blood in stool or black tarry stools. No abdominal distention. UROLOGIC: No burning urination. No hematuria. MUSCULOSKELETAL: No joint pain, No joint swelling, no muscle weakness. HEMATOLOGIC: No anemia, no bleeding disorder, No bruising. No history of blood transfusion. NEUROLOGIC: No seizures, no focal weakness, no speech difficulty, No memory disturbances. No tingling or numbness of the extremities. PSYCHIATRIC: No depression. No anxiety. No psychosis. PAST MEDICAL/SURGICAL HISTORY: - Mental retardation. - History of some stomach ulcers. He takes Zantac for stomach ulceration. SOCIAL HISTORY: non-smoker, denies any EtOH abuse. FAMILY HISTORY: not significant. MEDICATIONS: please review his chart for detail list of medication. Presently he is not on any anticoagulant treatment. He received vitamin K 10 mg orally in the ER today. ALLERGY: ibuprofen. Today he received IV vitamin K in ER, he had allergic reaction following that. He received oral vitamin K without any problem. PHYSICAL EXAMINATION: On exam: - Alert and oriented x3, well built man, not in any distress. - HEENT: no icterus, no pallor, Throat: Normal. - Neck: No palpable cervical lymphadenopathy. - Chest: clear to auscultation. - Abdomen: soft, nontender, no hepatomegaly, no splenomegaly. - No focal neuro deficit. - Extremities: no finger clubbing, no leg edema. LABS: Blood workup done on 06/27/2017: - WBC 7200, H&H of 13.5/40, MCV 88, Platelet count of 354,000. - BUN/creatinine: 7/0.7, AST 76, ALT 38, alkaline phosphatase 105, total protein 9.7. - PT > 100 seconds, PTT > 300 seconds. - 1:1 mixing study, it does correct to some extent but after 1 hour of incubation it is remain prolonged suggest presence of anticoagulant or inhibitor. - D-dimer level --> 45 - Fibrinogen level --> 375. IMAGING: Chest x-ray done today showed no acute credibility changes. ASSESSMENT AND PLAN: 51-year-old male, who has some borderline mental retardation and history of gastric ulceration, on Zantac therapy, presented with epistaxis of one week duration, no bleeding from either sites, also found to have significantly elevated PT and PTT, no IV side bleeding, normal platelet count, normal ferritin level, no elevated d-dimer level, hemodynamically stable, no significant drop noted in the hemoglobin level, has some upper respiratory tract infection symptom for the last one week. Both PT and PTT did correct to some extent with mixing study but on a prolonged incubation after 1 hour, once again it became prolonged suggest presence of inhibitor in the blood. He is not on any anticoagulant treatment at this time. We tried giving him vitamin K in the ER but he had an allergic reaction, he received oral vitamin K 10 mg today. Because of both PT and PTT are prolonged, we have sent factor level checkup ( will check factor 2, factor 10 and factor 5). Will see how he does overnight, monitor his H&H, watch for epistaxis and any other sites of bleeding. If he has increasing bleeding complications, we may have to transfer him to tertiary care center. Total protein is around 9.7 which is on the higher side. I would like to further investigate for underlying paraprotein disorder. Sometimes amyloidosis can present with epistaxis and may have acquired factor X deficiency. Will check SPEP, quantitative immunoglobulin level, light chain assay. I would like to check urine analysis to look for proteinuria or any blood. Will follow-up. Clive Nascimento MD Hem/Onc Past Medical/Surgical History Medical Problems: (1) Coagulopathy Status: Acute (2) Epistaxis Status: Acute (3) Epistaxis Status: Acute (4) Epistaxis, recurrent Status: Acute Family History No pertinent family history Social History Smoking Status: Never Smoker Drug Use: none Marital Status: single Housing Status: lives alone Occupation Status: employed Allergies Coded Allergies: Phytonadione (Verified Allergy, Severe, ANAPHYLAXIS, 06/27/17) IV only After 1 minute of transfusing IV form patients entire body became red, eye blood shot, SOB with wheezing and throat swelling. Ibuprofen (Verified Allergy, Intermediate, Rash, 06/27/17) Uncoded Allergies: ALEVE (Allergy, Mild, upset stomach, 04/26/16) Current Inpatient Medications Current Inpatient Medications Medications (Trade) Dose Ordered Sig/Liz Route Start Time Stop Time Status Last Admin Dose Admin Ondansetron HCl (Zofran Inj) 4 mg Q6H PRN IV 06/27/17 18:30 07/27/17 18:29 Ranitidine HCl (zANTac TAB) 300 mg BID PO 06/27/17 21:00 07/27/17 20:59 UNV Sodium Chloride ([place] Nasal [place]) 2 sprays BID [place] 06/27/17 21:00 07/27/17 20:59 Hydroxyzine HCl (Vistaril Tab) 25 mg BID PO 06/27/17 21:00 07/27/17 20:59 Physical Exam Date Time Temp Pulse Resp B/P (MAP) Pulse Ox O2 Delivery O2 Flow Rate FiO2 06/27/17 17:20 76 20 127/87 100 Room Air 06/27/17 17:18 76 06/27/17 17:00 74 18 127/78 99 Room Air 06/27/17 16:03 36.8 71 18 121/74 98 Room Air 06/27/17 14:34 66 18 119/71 99 Room Air 06/27/17 12:58 36.7 71 18 125/79 97 Room Air Laboratory Results Last 24 Hours Test 06/27/17 13:44 06/27/17 15:02 06/27/17 17:05 06/27/17 17:46 White Blood Count 7.28 K/uL Red Blood Count 4.55 M/uL Hemoglobin 13.5 g/dL Hematocrit 40.1 % Mean Corpuscular Volume 88.1 fL Mean Corpuscular Hemoglobin 29.7 pg Mean Corpuscular Hemoglobin Concent 33.7 g/dl Platelet Count 354 K/uL Mean Platelet Volume 8.8 fL Neutrophils (%) (Auto) 62.6 % Lymphocytes (%) (Auto) 18.8 % Monocytes (%) (Auto) 10.9 % Eosinophils (%) (Auto) 7.1 % Basophils (%) (Auto) 0.5 % Neutrophils # (Auto) 4.55 K/uL Lymphocytes # (Auto) 1.37 K/uL Monocytes # (Auto) 0.79 K/uL Eosinophils # (Auto) 0.52 K/uL Basophils # (Auto) 0.04 K/uL RDW Standard Deviation 40.6 fL RDW Coefficient of Variation 12.8 % Immature Granulocyte % (Auto) 0.1 % Immature Granulocyte # (Auto) 0.01 K/uL Sodium Level 138 mmol/L Potassium Level 3.7 mmol/L Chloride Level 105 mmol/L Carbon Dioxide Level 24 mmol/L Anion Gap 9.0 mmol/L Blood Urea Nitrogen 7 mg/dl Creatinine 0.77 mg/dl Est Creatinine Clear Calc Drug Dose 85.6 ml/min Estimated GFR () 120.9 Estimated GFR (Non- 104.3 BUN/Creatinine Ratio 8.8 Random Glucose 75 mg/dl Calcium Level 9.3 mg/dl Total Bilirubin 0.5 mg/dl Direct Bilirubin 0.1 mg/dl Aspartate Amino Transf (AST/SGOT) 76 U/L Alanine Aminotransferase (ALT/SGPT) 38 U/L Alkaline Phosphatase 105 U/L Total Creatine Kinase 143 U/L Total Protein 9.7 gm/dl Albumin 3.8 gm/dl Thyroid Stimulating Hormone (TSH) 0.929 uIu/ml Salicylates Level < 1.7 mg/dl Acetaminophen Level < 2 ug/ml Prothrombin Time > 100.0 SECONDS Prothromb Time International Ratio > 10.0 Activated Partial Thromboplast Time > 300.0 SECONDS Partial Thromboplastin Ratio > 11.0 PT Mixing Studies Interpretation PT NOT CORRECTED PTT Mixing Studies Interpretation FACTOR INHIBITOR Fibrinogen 375 mg/dl Bedside D-Dimer 45 ng/mlFEU Fibrin Degradation Products <10 mcg/ml
[2017-06-27 19:59] VITALS: BP 133/82; PULSE 76; TEMP 37.1; O2SAT 98
[2017-06-27 21:14] VITALS: Ht 157.5 cm; Wt 53.9 kg
[2017-06-27] MEDS ORDERED: ACETAMINOPHEN 325 MG TAB PO PRN (21:30)
[2017-06-27] MEDS ORDERED: TRAMADOL HCL 50 MG TAB PO PRN (21:30)
[2017-06-27 22:22] LABS: HEMOGLOBIN 12.9 g/dL (14.0-18.0)
[2017-06-27] MEDS: RANITIDINE HCL 150 MG TAB PO SCH (22:33)
[2017-06-27] MEDS: hydrOXYzine HCL 25 MG TAB PO SCH (22:34)
[2017-06-27] MEDS: SODIUM CHLORIDE 0.65% NA SOLN 45 ML (OCEAN) NAE SCH (22:34)
[2017-06-28] VITALS (9 sets, daily range): BP systolic 102–121; BP diastolic 59–76; PULSE 68–80; TEMP 36.5–37.3; O2SAT 96–98
[2017-06-28 05:04] LABS: BASO % 0.8 %; BASO ABS # 0.05 K/uL (0-0.2); EOS ABS # 0.52 K/uL (0-0.5); HEMOGLOBIN 13.4 g/dL (14.0-18.0); IG# 0.01 K/uL (0.00-0.02); LYMPH % 17.6 %; LYMPH ABS # 1.14 K/uL (1.2-3.4); MEAN CELL VOLUME 88.9 fL (80-100); MEAN CORPUSCULAR HEMOGLOBIN 29.8 pg (25-34); MEAN CORPUSCULAR HGB CONC 33.5 g/dl (32-36); MONO ABS # 0.84 K/uL (0.11-0.59); NEUT % 60.4 %; NEUT ABS # 3.91 K/uL (1.4-6.5); PLATELET COUNT 318 K/uL (130-400); RED CELL DISTRIBUTION WIDTH CV 12.9 % (11.5-14.5); RED CELL DISTRIBUTION WIDTH SD 41.4 fL (36.4-46.3); WHITE BLOOD COUNT 6.47 K/uL (4.8-10.8)
[2017-06-28 05:40] LABS: CALCIUM 8.5 mg/dl (8.5-10.1); CREATININE 0.83 mg/dl (0.60-1.40); POTASSIUM 3.4 mmol/L (3.5-5.1)
[2017-06-28 07:05] LABS: INR > 10.0 (0.9-1.1); PTT PATIENT 181.6 SECONDS (21.0-31.0)
[2017-06-28] MEDS: hydrOXYzine HCL 25 MG TAB PO SCH ×2 (07:30→19:25)
[2017-06-28] MEDS: SODIUM CHLORIDE 0.65% NA SOLN 45 ML (OCEAN) NAE SCH ×2 (07:30→19:25)
[2017-06-28] MEDS: RANITIDINE HCL 150 MG TAB PO SCH ×2 (07:30→19:25)
[2017-06-28] MEDS ORDERED: OXYMETAZOLINE HCL 0.05% NA SPR 15 ML BTL ONE (13:00)
[2017-06-28] MEDS: SALINE NASAL GEL (AYR) 14.1 GM TUBE SCH ×2 (13:41→19:25)
[2017-06-28 17:06] LABS: HEMOGLOBIN 12.4 g/dL (14.0-18.0)
[2017-06-28 18:01] LABS: INR 8.5 (0.9-1.1)
[2017-06-28 18:03] LABS: PTT PATIENT 142.4 SECONDS (21.0-31.0)
--- NOTE | 2017-06-28 18:20 | Progress Note ---
Medicine Progress Note Date & Time of Visit: Jun 28, 2017 at 18:20 . Subjective Patient initially seen this morning. Persistent oozing from left nostril. Received 2 units FFP this afternoon. Persistent oozing from left nostril; only modest improvement of PT/INR and PTT. Dr. Nascimento discussed status with patient and family. Transfer to tertiary care recommended for more robust on-side diagnostic services as well as potential need for aggressive blood transfusions if worsening blood loss. Patient / family prefer [facility] [place]. Nascimento discussed case with mechanical maintenance supervisor on duty. Patient accepted in transfer and arrangements are being made. . Objective Last 8 Hrs Date Time Temp Pulse Resp B/P (MAP) Pulse Ox O2 Delivery O2 Flow Rate FiO2 06/28/17 16:13 Room Air 06/28/17 15:10 36.8 75 18 111/67 97 06/28/17 14:30 36.5 76 18 104/64 06/28/17 14:15 36.6 79 18 105/64 06/28/17 13:45 37.1 80 18 109/67 06/28/17 13:27 36.7 80 18 102/59 96 06/28/17 10:30 Room Air 06/28/17 10:29 Room Air Physical Exam: General- no distress Eyes- anicteric ENT- Rapid Rhino left nostril with oozing blood Lungs- clear Heart- RRR Abdomen- + BS, soft, nontender Extremities- no pretibial edema or calf tenderness Neuro- alert . Laboratory Results: Last 24 Hours Test 06/27/17 20:21 06/27/17 22:03 06/27/17 22:33 06/28/17 04:28 Immunoglobulin G 2460.0 mg/dL Immunoglobulin A 175.0 mg/dL Immunoglobulin M 81.1 mg/dL Hemoglobin 12.9 g/dL 13.4 g/dL Hematocrit 38.0 % 40.0 % Urine Color YELLOW Urine Appearance CLEAR Urine pH 7.0 Urine Specific [place] 1.012 Urine Protein NEG Urine Glucose (UA) NEG Urine Ketones 2+ Urine Occult Blood NEG Urine Nitrite NEG Urine Bilirubin NEG Urine Urobilinogen NEG Urine Leukocyte Esterase NEG White Blood Count 6.47 K/uL Red Blood Count 4.50 M/uL Mean Corpuscular Volume 88.9 fL Mean Corpuscular Hemoglobin 29.8 pg Mean Corpuscular Hemoglobin Concent 33.5 g/dl Platelet Count 318 K/uL Mean Platelet Volume 9.0 fL Neutrophils (%) (Auto) 60.4 % Lymphocytes (%) (Auto) 17.6 % Monocytes (%) (Auto) 13.0 % Eosinophils (%) (Auto) 8.0 % Basophils (%) (Auto) 0.8 % Neutrophils # (Auto) 3.91 K/uL Lymphocytes # (Auto) 1.14 K/uL Monocytes # (Auto) 0.84 K/uL Eosinophils # (Auto) 0.52 K/uL Basophils # (Auto) 0.05 K/uL RDW Standard Deviation 41.4 fL RDW Coefficient of Variation 12.9 % Immature Granulocyte % (Auto) 0.2 % Immature Granulocyte # (Auto) 0.01 K/uL Prothrombin Time > 100.0 SECONDS Prothromb Time International Ratio > 10.0 Activated Partial Thromboplast Time 181.6 SECONDS Partial Thromboplastin Ratio 6.8 Sodium Level 135 mmol/L Potassium Level 3.4 mmol/L Chloride Level 104 mmol/L Carbon Dioxide Level 24 mmol/L Anion Gap 7.0 mmol/L Blood Urea Nitrogen 7 mg/dl Creatinine 0.83 mg/dl Est Creatinine Clear Calc Drug Dose 79.4 ml/min Estimated GFR () 117.3 Estimated GFR (Non- 101.2 BUN/Creatinine Ratio 8.6 Random Glucose 109 mg/dl Calcium Level 8.5 mg/dl Test 06/28/17 08:47 06/28/17 16:53 Hemoglobin 12.4 g/dL Hematocrit 37.0 % Prothrombin Time 85.1 SECONDS Prothromb Time International Ratio 8.5 Activated Partial Thromboplast Time 142.4 SECONDS Partial Thromboplastin Ratio 5.4 Assessment & Plan Please refer to discharge summary. . Current Inpatient Medications: Current Inpatient Medications Medications (Trade) Dose Ordered Sig/Liz Route Start Time Stop Time Status Last Admin Dose Admin Ondansetron HCl (Zofran Inj) 4 mg Q6H PRN IV 06/27/17 18:30 07/27/17 18:29 Ranitidine HCl (zANTac TAB) 300 mg BID PO 06/27/17 20:00 07/27/17 20:59 06/28/17 07:30 300 MG Sodium Chloride ([place] Nasal [place]) 2 sprays BID [place] 06/27/17 20:00 07/27/17 20:59 06/28/17 07:30 2 SPRAYS Hydroxyzine HCl (Vistaril Tab) 25 mg BID PO 06/27/17 20:00 07/27/17 20:59 06/28/17 07:30 25 MG Acetaminophen (Tylenol Tab) 650 mg Q6H PRN PO 06/27/17 21:30 07/27/17 21:29 06/27/17 22:04 650 MG Tramadol HCl (Ultram Tab) not relieved ... Q6H PRN PO 06/27/17 21:30 07/27/17 21:29 Oxymetazoline HCl ([place]fr[place] 0.05% Nasal [place]) 4 sprays BID NA 06/28/17 20:00 07/01/17 08:01 Sodium Chloride ([place] Saline Nasal Gel) 1 appln TID NA 06/28/17 14:00 07/28/17 13:59 06/28/17 13:41 1 APPLN
--- NOTE | 2017-06-28 18:35 | Hematology/Oncology Prog Note ---
Hematology/Onc Progress Note Date of Service Jun 28, 2017. Subjective I saw him at bedside, few family members were also at bedside, sitting comfortable in the bed, hemodynamically he has remained stable. No fever. O2 saturation on room air is around 97%. Earlier in the day he continued to have epistaxis with some ongoing oozing of the blood but no bleeding from any other sites. No new cardiac or pulmonary symptoms no leg edema, no abdominal symptoms, no nausea or vomiting. No skin rash. No joint pain. Mixing study done yesterday: - PT did not correct. - PTT initially corrected with addition of the normal plasma but subsequently prolonged with the incubation. Mixing study suggest presence of inhibitor. He received 2 units of FFP in the afternoon. No significant side effects following FFP noted. - WBC 6400, H&H of 13.4/40, Platelet count of 318,000. (06/28/2017) - Repeat H&H in the afternoon --> 12.4/37. - BUN/creatinine: 7/0.8 - TSH level --> 0.29. Coalition testing done early in the morning: - PT > 100, PTT 181 seconds. After 2 units of FFP, PT --> 85 seconds, PTT 142 seconds. Urinalysis shows no evidence of protein. IgG 2460, IgA 175, IgM 81. SPEP and free [place] and lambda light chain --> Pending. Direct Yovany test positive with IgG, negative with C3. I spoke with the patient and mainly family members at bedside regarding the diagnostic workup done so far, it appears that we are suspecting some inhibitor in the blood, additional factor level checkup (factor II, factor V, factor X) pending. To complicate his case, he also has positive direct Yovany test and so we are not able to find appropriate crossmatch blood at this time and it may take some time. I spoke with the family members regarding transferring his care to the tertiary care center and they are in the agreement. I spoke with Dr. Pelaez and discussed about his case and they have accepted the case at . Vital Signs Vital Signs Past 12 Hours Date Time Temp Pulse Resp B/P (MAP) Pulse Ox O2 Delivery O2 Flow Rate FiO2 06/28/17 16:13 Room Air 06/28/17 15:10 36.8 75 18 111/67 97 06/28/17 14:30 36.5 76 18 104/64 06/28/17 14:15 36.6 79 18 105/64 06/28/17 13:45 37.1 80 18 109/67 06/28/17 13:27 36.7 80 18 102/59 96 06/28/17 10:30 Room Air 06/28/17 10:29 Room Air 06/28/17 08:04 37.3 68 18 113/74 (87) 97
--- NOTE | 2017-06-28 18:44 | Discharge Summary ---
Discharge Summary Date of Service Jun 28, 2017. Discharge Summary Admission Date: Jun 27, 2017 at 18:27 Discharge Date: Jun 28, 2017 Discharge Disposition: Acute care facility Principal Diagnosis: coagulopathy epistaxis . Secondary Diagnoses/Problems: Chronic and Resolved Medical Problems: (1) History of herpes zoster Status: Chronic (2) History of poliomyelitis Status: Chronic (3) left shoulder surgery Status: Resolved (4) Mild cognitive impairment Status: Chronic (5) Pectus excavatum Status: Chronic Surgical Problems: (1) Status post mastoidectomy Status: Chronic (2) Status post shoulder surgery Status: Chronic . Procedures: Transfusion 2 units FFP. . Consultations: Hematology with Dr. Clive Nascimento . Admission Information HPI (per Admitting provider): This is a 51 year old male with a PMH of borderline MR, hx. of gastric ulcers - presents with epistaxis and coagulopathy. Patient has been having trouble with epistaxis since June 20. He was seen in the ED twice. Had this packed and stopped, but the bleeding recurred. He was then seen by ENT on SundayJune 25 - bleeding again recurred on June 27 - he was again seen by ENT, and this time after the bleeding stopped; labwork was performed and showed an INR of >4. He was sent to the ER for further evaluation. Upon presentation, noted to have INR>10, PT>100, aPTT>100. Denies any blood thinners , does not take Coumadin, aspirin, Plavix or any other blood thinners. Takes Ranitidine twice daily for a previous gastric ulcer; has followed up with gastroenterology for this. After speaking with hematology, vitamin K and further labwork pending. IV Vitamin K was given, patient became very pale, flushed, wheezing, throat closing. Benadryl given. Duonebs. I saw the patient afterwards. Breathing improved after nebulizers. . Physical Exam (per Admitting): General Appearance: WD/WN, no apparent distress Head: normocephalic, atraumatic Eyes: normal inspection ENT: + pertinent finding (+mild bleeding noted from nostrils) Neck: supple Respiratory/Chest: lungs clear, normal breath sounds, no respiratory distress, no accessory muscle use Cardiovascular: regular rate, rhythm, no edema, no gallop, no JVD, no murmur Abdomen/GI: normal bowel sounds, non tender, soft Extremities/Musculoskelatal: normal inspection, no calf tenderness, normal capillary refill, no pedal edema, normal range of motion Neurologic/Psych: cutter down II-XII nml as tested, no motor/sensory deficits, alert , normal mood/affect, oriented x 3 Skin: normal color Lymphatic: no adenopathy Hospital Course COAGULOPATHY Recent onset epistaxis as outlined in H&P. INR obtained in ENT clinic on 06/25/17 was 4.58. Patient referred to hospital for further evaluation and management. No prior history of coagulopathy. Underwent arthroscopic shoulder surgery October 2016 with minimal blood loss. Patient is adopted. No known family history of bleeding disorders. Labs in ED: Item Value Date Time Hemoglobin 13.5 g/dL L 06/27/17 1344 Hematocrit 40.1 % L 06/27/17 1344 White Blood Count 7.28 K/uL 06/27/17 1344 Platelet Count 354 K/uL 06/27/17 1344 Prothrombin Time > 100.0 SECONDS H 06/27/17 1502 Prothromb Time International Ratio > 10.0 *H 06/27/17 1502 Activated Partial Thromboplast Time > 300.0 SECONDS *H 06/27/17 1502 Partial Thromboplastin Ratio > 11.0 06/27/17 1502 PT Mixing Studies Interpretation PT NOT CORRECTED 06/27/17 1502 PTT Mixing Studies Interpretation FACTOR INHIBITOR 06/27/17 1502 Fibrinogen 375 mg/dl 06/27/17 1502 Fibrin Degradation Products <10 mcg/ml 06/27/17 1746 Bedside D-Dimer 45 ng/mlFEU 06/27/17 1705 Hematology consult obtained in ED. IV vitamin K recommended; developed flushing and coughing soon after administration. Subsequently received oral vitamin K 10 mg. Repeat labs morning of 06/28/17: Item Value Date Time Hemoglobin 13.4 g/dL L 06/28/17 0428 Hematocrit 40.0 % L 06/28/17 0428 White Blood Count 6.47 K/uL 06/28/17 0428 Platelet Count 318 K/uL 06/28/17 0428 Prothrombin Time > 100.0 SECONDS H 06/28/17 0428 Prothromb Time International Ratio > 10.0 *H 06/28/17 0428 Activated Partial Thromboplast Time 181.6 SECONDS *H 06/28/17 0428 2 units FFP administered. Repeat labs about 1 hour after administration: Item Value Date Time Hemoglobin 12.4 g/dL L 06/28/17 1653 Hematocrit 37.0 % L 06/28/17 1653 Prothrombin Time 85.1 SECONDS H 06/28/17 1653 Prothromb Time International Ratio 8.5 *H 06/28/17 1653 Activated Partial Thromboplast Time 142.4 SECONDS *H 06/28/17 1653 Multiple studies (factor levels, SPEP, lupus anticoagulant) ordered by Hematology and sent to reference lab- results pending. Ongoing oozing from left nostril despite vitamin K and FFP. Hematology recommended transfer to tertiary care center for further evaluation and management. Patient / family request transfer to [facility]. Dr. Nascimento discussed case with manager strategic development ultrasonographer. EPISTAXIS Hemostasis left nostril initially achieved in ED 06/23/17 with silver nitrate cauterization. Bleed Arrest ED placed against left anterior septum in ENT Clinic on 06/25/17. Bleed Arrest ED placed against left anterior septum with 7.5 cm Rapid Rhino in ENT Clinic on 06/27/17. VTE PROPHYLAXIS Anticoagulants contraindicated due to coagulopathy. SCD's. Ambulate. DISPOSITION Arrangements being made for transfer to [facility] on the Hematology Service. Dr. Pelaez is the accepting physician. Internal Medicine follow-up with Dr. Suazo. . Total time spent on discharge = 45 min. This includes examination of the patient, discharge planning, medication reconciliation, and communication with other providers. . Discharge Instructions ACTIVITY: ad cuco DIET: regular ALLERGIES: ibuprofen naproxen phytonadione (intravenous administration --> flushing, coughing) VTE PROPHYLAXIS: SCD's ambulate Reported Home Medications Medications Dose Route/Sig Max Daily Dose Days Date Category Triamcinolone Acet 0.025% (Triamcinolone Acetonide (Topic) 0.025 % Oin 1 Appln TOP BID 06/27/17 Reported Vistaril (Hydroxyzine Pamoate) 25 Mg Cap 1 Cap PO BID 30 06/27/17 Reported [place] Nasal Sulphur (Saline) 0.65 % Spr 06/27/17 Reported Tylenol (Acetaminophen) 325 Mg Tab 325 Mg PO 06/27/17 Reported Tessalon Perles (Benzonatate) 100 Mg Cap 1-2 Cap PO Q4 5 06/27/17 Reported Flonase Allergy Relief (Fluticasone Propionate (Nasal)) 50 Mcg/Act Spr 06/27/17 Reported Proair Respiclick (Albuterol Sulfate) 108 Mcg/Act Aer 1 Puff INH BID 04/26/16 Reported Zantac (Ranitidine HCl) 300 Mg Tab 300 Mg PO BID 04/14/16 Reported Current Inpatient Medications Medications (Trade) Dose Ordered Sig/Liz Route Start Time Stop Time Status Last Admin Dose Admin Ondansetron HCl (Zofran Inj) 4 mg Q6H PRN IV 06/27/17 18:30 07/27/17 18:29 Ranitidine HCl (zANTac TAB) 300 mg BID PO 06/27/17 20:00 07/27/17 20:59 06/28/17 07:30 300 MG Sodium Chloride ([place] Nasal Sulphur) 2 sprays BID [place] 06/27/17 20:00 07/27/17 20:59 06/28/17 07:30 2 SPRAYS Hydroxyzine HCl (Vistaril Tab) 25 mg BID PO 06/27/17 20:00 07/27/17 20:59 06/28/17 07:30 25 MG Acetaminophen (Tylenol Tab) 650 mg Q6H PRN PO 06/27/17 21:30 07/27/17 21:29 06/27/17 22:04 650 MG Tramadol HCl (Ultram Tab) not relieved ... Q6H PRN PO 06/27/17 21:30 07/27/17 21:29 Oxymetazoline HCl (Afrin 0.05% Nasal Sulphur) 4 sprays BID NA 06/28/17 20:00 07/01/17 08:01 Sodium Chloride ([place] Saline Nasal Gel) 1 appln TID NA 06/28/17 14:00 07/28/17 13:59 06/28/17 13:41 1 APPLN Last 24 Hours Test 06/27/17 20:21 06/27/17 22:03 06/27/17 22:33 06/28/17 04:28 Immunoglobulin G 2460.0 mg/dL Immunoglobulin A 175.0 mg/dL Immunoglobulin M 81.1 mg/dL Hemoglobin 12.9 g/dL 13.4 g/dL Hematocrit 38.0 % 40.0 % Urine Color YELLOW Urine Appearance CLEAR Urine pH 7.0 Urine Specific [place] 1.012 Urine Protein NEG Urine Glucose (UA) NEG Urine Ketones 2+ Urine Occult Blood NEG Urine Nitrite NEG Urine Bilirubin NEG Urine Urobilinogen NEG Urine Leukocyte Esterase NEG White Blood Count 6.47 K/uL Red Blood Count 4.50 M/uL Mean Corpuscular Volume 88.9 fL Mean Corpuscular Hemoglobin 29.8 pg Mean Corpuscular Hemoglobin Concent 33.5 g/dl Platelet Count 318 K/uL Mean Platelet Volume 9.0 fL Neutrophils (%) (Auto) 60.4 % Lymphocytes (%) (Auto) 17.6 % Monocytes (%) (Auto) 13.0 % Eosinophils (%) (Auto) 8.0 % Basophils (%) (Auto) 0.8 % Neutrophils # (Auto) 3.91 K/uL Lymphocytes # (Auto) 1.14 K/uL Monocytes # (Auto) 0.84 K/uL Eosinophils # (Auto) 0.52 K/uL Basophils # (Auto) 0.05 K/uL RDW Standard Deviation 41.4 fL RDW Coefficient of Variation 12.9 % Immature Granulocyte % (Auto) 0.2 % Immature Granulocyte # (Auto) 0.01 K/uL Prothrombin Time > 100.0 SECONDS Prothromb Time International Ratio > 10.0 Activated Partial Thromboplast Time 181.6 SECONDS Partial Thromboplastin Ratio 6.8 Sodium Level 135 mmol/L Potassium Level 3.4 mmol/L Chloride Level 104 mmol/L Carbon Dioxide Level 24 mmol/L Anion Gap 7.0 mmol/L Blood Urea Nitrogen 7 mg/dl Creatinine 0.83 mg/dl Est Creatinine Clear Calc Drug Dose 79.4 ml/min Estimated GFR () 117.3 Estimated GFR (Non- 101.2 BUN/Creatinine Ratio 8.6 Random Glucose 109 mg/dl Calcium Level 8.5 mg/dl Test 06/28/17 08:47 06/28/17 16:53 Hemoglobin 12.4 g/dL Hematocrit 37.0 % Prothrombin Time 85.1 SECONDS Prothromb Time International Ratio 8.5 Activated Partial Thromboplast Time 142.4 SECONDS Partial Thromboplastin Ratio 5.4 Thank you for receiving this patient in transfer. Please call if you have any questions. Jordan Brown .
[2017-06-28] MEDS ORDERED: OXYMETAZOLINE HCL 0.05% NA SPR 15 ML BTL SCH (20:00)
== END 2017-06-29 02:45 | disposition short-term general hospital (02) | DRG 813 ==
LOC: C.EDB 12:57 → C.4E 18:27 → ENRESERV 18:37
PROVIDERS: ADMIT Family Medicine; ATTEND Hospitalist
DX: D68.9 Coagulation defect, unspecified (principal); R04.0 Epistaxis; Z79.899 Other long term (current) drug therapy; Z88.6 Allergy status to analgesic agent